=== PATIENT | male | born 1935 | race Caucasian/White ===

== ENCOUNTER → 2016-07-24 | Outpatient (CLI) | payer MEDICARE, OTHER ==
[~2016-07-24] MED LIST: ARTHROTEC 75 M1 EACH; ASPIR 8181 MG PO; ASPIRIN (CHILDR81 MG PO; COLACE100 MG PO; CPAP INH; DEPO TESTOS200 MG/ML IM; DILAUDID2 MG PO; HYDROCHLOROTHIA25 MG PO; MILK OF MA400 MG/5 M PO; MIRALAX17 GM PO; MULTI VITAMIN1 EACH PO; NIACIN500 M1 PO; PRILOSEC20 M1 PO; RED YEAST RICE600 M1 PO; TOPROL XL50 MG PO; ULTRAM50 MG PO; VALIUM2 M1 PO; VITAMIN D5000 UNIT PO; XARELTO10 MG PO
== END | disposition disaster alternative care site (69) ==
LOC: GRAD 15:39
DX: Z47.89 Encounter for other orthopedic aftercare (principal); M47.817 Spondylosis without myelopathy or radiculopathy, lumbosacral region; M41.9 Scoliosis, unspecified; M51.36 Other intervertebral disc degeneration, lumbar region; Z98.1 Arthrodesis status